=== PATIENT | male | born 1960 | race Caucasian/White ===

== ENCOUNTER 2021-04-13 20:21 | Inpatient (IN) ==
[2021-04-13] MEDS ORDERED: Droperidol 5 MG/2 ML 2 ML VIAL IM ONE (21:20)
[2021-04-13 22:49] LABS: ABS Lymphocytes 1.5 10^3/ul (1.0-4.8); ABS Monocytes 0.9 10^3/ul (0-0.8); Eosinophil % 0.6 %; Hematocrit 43 % (42-52); Hemoglobin 14.5 g/dL (14.0-18.0); Lymphocyte % 23.4 %; Mean Corpuscular HGB Conc 34 g/dL (31-36); Mean Corpuscular Hemoglobin 32 pg (27-31); Mean Corpuscular Volume 96 fL (80-94); Mean Platelet Volume 9.6 fL (7.4-10.4); Nucleated Red Blood Cells % 0.2; Platelet Count 173 10^3/uL (150-450); Red Blood Count 4.48 10^6 /uL (4.18-5.48); Red Cell Distribution Width 14 % (10-15); White Blood Count 6.5 10^3/uL (3.5-10.8)
[2021-04-13 22:59] LABS: ALT 43 U/L (7-52); AST 37 U/L (13-39); Albumin 4.1 g/dL (3.2-5.2); Albumin/Globulin Ratio 1.5 (1-3); Alkaline Phosphatase 41 U/L (35-149); Anion Gap 6 mmol/L (2-11); Blood Urea Nitrogen 15 mg/dL (6-24); CO2 Carbon Dioxide 27 mmol/L (22-32); Calcium 9.3 mg/dL (8.6-10.3); Chloride 104 mmol/L (101-111); Globulin 2.8 g/dL (2-4); Glucose 104 mg/dL (70-100); Potassium 4.1 mmol/L (3.5-5.0); Sodium 137 mmol/L (135-145); Total Protein 6.9 g/dL (6.4-8.9)
[2021-04-13 23:18] LABS: Alcohol, S < 13 mg/dL (<13); Salicylate < 2.50 mg/dL (<30)
[2021-04-13 23:32] LABS: Acetaminophen < 15 mcg/mL
[2021-04-13 23:40] LABS: TSH Ultra Thyroid Stim Horm 7.25 mcIU/mL (0.34-5.60)
[2021-04-13 23:58] LABS: Urine Appearance Clear; Urine Bilirubin Negative (Negative); Urine Blood Negative (Negative); Urine Color Yellow; Urine Glucose Negative (Negative); Urine Ketones Negative (Negative); Urine Nitrite Negative (Negative); Urine Protein Negative (Negative); Urine Specific Gravity 1.008 (1.002-1.030); Urine Urobilinogen Negative (Negative)
[2021-04-14 00:03] LABS: Rapid COVID-19 Molecular Undetected (Undetected)
[2021-04-14 00:13] LABS: Urine Benzodiazepine Screen None Detected (None Detect); Urine Cannabinoids Screen None Detected (None Detect); Urine Opiates Screen None Detected (None Detect)
[2021-04-14] MEDS ORDERED: Ziprasidone IM 20 mg VIAL 1 ml VIAL IM ONE (03:33)
[2021-04-14] MEDS ORDERED: Ziprasidone IM 20 mg VIAL 1 ml VIAL ONE (03:34)
[2021-04-14] MEDS ORDERED: Albuterol HFA INHALER 8 gm MDI INH ONE (09:08)
[2021-04-14 09:37] LABS: INR 1.6 (0.86-1.15)
[2021-04-14] MEDS ORDERED: Al Hydrox/Mg Hydrox/Simet LIQ 30 ML UDC PO PRN (12:01)
[2021-04-14] MEDS: Amoxicillin/Clavul 875/125 TAB (Augmentin 875 tab) PO SCH ×2 (13:02→21:46)
[2021-04-15] MEDS: Amoxicillin/Clavul 875/125 TAB (Augmentin 875 tab) PO SCH ×2 (07:39→21:19)
[2021-04-15] MEDS: Albuterol HFA INHALER 8 gm MDI INH PRN (08:28)
[2021-04-16] MEDS: Amoxicillin/Clavul 875/125 TAB (Augmentin 875 tab) PO SCH ×2 (08:10→21:23)
[2021-04-16] MEDS: Albuterol HFA INHALER 8 gm MDI INH PRN ×2 (08:32→18:56)
[2021-04-16] MEDS ORDERED: Warfarin per PHARMACY **NOTE FOLLOW UP SCH (12:00)
[2021-04-16 16:39] LABS: INR 1.26 (0.86-1.15)
[2021-04-16 17:23] LABS: Free T4 0.94 ng/dL (0.61-1.12)
[2021-04-16] MEDS ORDERED: CASIRIVIMAB/IMDEVIMAB SUBCUT 600-600MG/10 ML SUBCUT ONE (18:00)
[2021-04-16] MEDS ORDERED: Enoxaparin 100 MG/ML SYR SUBCUT SCH (18:30)
[2021-04-17] MEDS: Amoxicillin/Clavul 875/125 TAB (Augmentin 875 tab) PO SCH ×2 (08:05→19:52)
[2021-04-17 08:16] LABS: INR 1.33 (0.86-1.15)
[2021-04-18] MEDS: Amoxicillin/Clavul 875/125 TAB (Augmentin 875 tab) PO SCH (08:01)
[2021-04-18 11:57] LABS: INR 1.38 (0.86-1.15)
[2021-04-18] MEDS: Albuterol HFA INHALER 8 gm MDI INH PRN (12:26)
[2021-04-18] MEDS ORDERED: Nicotine GUM 2MG FRUIT FLAVOR PO PRN (12:32)
[2021-04-18] MEDS: Nicotine PATCH 14 MG/24 HR PATCH TRANSDERM SCH (14:49)
[2021-04-19 08:10] LABS: INR 1.57 (0.86-1.15)
[2021-04-19] MEDS: Nicotine PATCH 14 MG/24 HR PATCH TRANSDERM SCH (09:36)
[2021-04-19] MEDS ORDERED: Haloperidol 5 mg/ml SDV IV/IM 5 MG/ML AMP ONE ×2 (11:11→16:48)
[2021-04-19] MEDS ORDERED: LORazepam 2 mg VIAL 1 ml ONE ×2 (11:12→16:50)
[2021-04-19] MEDS ORDERED: diPHENhydraMINE IV 50 MG/ML 1 ml VIAL (BENADRYL) ONE (16:48)
[2021-04-19] MEDS ORDERED: Haloperidol 5 mg/ml SDV IV/IM 5 MG/ML AMP IM ONE (16:56)
[2021-04-19] MEDS ORDERED: LORazepam 2 mg VIAL 1 ml IM ONE (16:57)
[2021-04-19] MEDS ORDERED: diPHENhydraMINE IV 50 MG/ML 1 ml VIAL (BENADRYL) IM ONE (16:58)
[2021-04-19] MEDS ORDERED: Lorazepam PYXIS KEY PRN (17:06)
[2021-04-19] MEDS: Albuterol HFA INHALER 8 gm MDI INH PRN ×2 (17:56→23:20)
[2021-04-20] MEDS: Nicotine PATCH 14 MG/24 HR PATCH TRANSDERM SCH (08:20)
[2021-04-20 09:18] LABS: INR 1.97 (0.86-1.15)
[2021-04-20] MEDS ORDERED: diPHENhydraMINE IV 50 MG/ML 1 ml VIAL (BENADRYL) ONE (13:18)
[2021-04-21 08:03] LABS: INR 2.71 (0.86-1.15)
[2021-04-21] MEDS: Nicotine PATCH 14 MG/24 HR PATCH TRANSDERM SCH (09:47)
[2021-04-21] MEDS: Albuterol HFA INHALER 8 gm MDI INH PRN (09:48)
[2021-04-21] MEDS: Warfarin DAILY REMINDER **NOTE FOLLOW UP SCH (16:50)
[2021-04-22 08:05] LABS: Hematocrit 43 % (42-52); Hemoglobin 14.7 g/dL (14.0-18.0); Mean Platelet Volume 10.1 fL (7.4-10.4); Platelet Count 141 10^3/uL (150-450)
[2021-04-22 08:41] LABS: INR 2.16 (0.86-1.15)
[2021-04-22] MEDS: Nicotine PATCH 14 MG/24 HR PATCH TRANSDERM SCH (11:15)
[2021-04-22] MEDS: Albuterol HFA INHALER 8 gm MDI INH PRN ×2 (16:59→22:46)
[2021-04-22] MEDS: Warfarin DAILY REMINDER **NOTE FOLLOW UP SCH (17:00)
[2021-04-23 07:54] LABS: INR 2.27 (0.86-1.15)
[2021-04-23] MEDS: Nicotine PATCH 14 MG/24 HR PATCH TRANSDERM SCH (08:28)
[2021-04-23] MEDS: Albuterol HFA INHALER 8 gm MDI INH PRN (16:34)
[2021-04-23] MEDS: Warfarin DAILY REMINDER **NOTE FOLLOW UP SCH (17:04)
[2021-04-24] MEDS: Nicotine PATCH 14 MG/24 HR PATCH TRANSDERM SCH (08:40)
[2021-04-24 08:59] LABS: INR 3.01 (0.86-1.15)
[2021-04-24] MEDS: Warfarin DAILY REMINDER **NOTE FOLLOW UP SCH (17:19)
[2021-04-25] MEDS: Nicotine PATCH 14 MG/24 HR PATCH TRANSDERM SCH (08:42)
[2021-04-25 11:13] LABS: INR 3.28 (0.86-1.15)
[2021-04-25] MEDS: Warfarin DAILY REMINDER **NOTE FOLLOW UP SCH (17:34)
[2021-04-25] MEDS: Albuterol HFA INHALER 8 gm MDI INH PRN (22:10)
[2021-04-26 01:31] LABS: ABS Eosinophils 0.1 10^3/ul (0-0.6); ABS Lymphocytes 1.4 10^3/ul (1.0-4.8); ABS Monocytes 0.6 10^3/ul (0-0.8); ABS Neutrophils 2.7 10^3/ul (1.5-7.7); Eosinophil % 2.2 %; Hematocrit 42 % (42-52); Hemoglobin 14.2 g/dL (14.0-18.0); Lymphocyte % 29.1 %; Mean Corpuscular HGB Conc 34 g/dL (31-36); Mean Corpuscular Hemoglobin 32 pg (27-31); Mean Corpuscular Volume 95 fL (80-94); Mean Platelet Volume 9.8 fL (7.4-10.4); Nucleated Red Blood Cells % 0.1; Platelet Count 140 10^3/uL (150-450); Red Blood Count 4.41 10^6 /uL (4.18-5.48); Red Cell Distribution Width 14 % (10-15); White Blood Count 4.9 10^3/uL (3.5-10.8)
[2021-04-26 01:51] LABS: Calcium 9.5 mg/dL (8.6-10.3)
[2021-04-26 01:54] LABS: Troponin I 0.01 ng/mL (<0.03)
[2021-04-26] MEDS: Nicotine PATCH 14 MG/24 HR PATCH TRANSDERM SCH (08:33)
[2021-04-26 08:35] LABS: INR 4.01 (0.86-1.15)
[2021-04-26] MEDS ORDERED: Warfarin - No Order Today **NOTE FOLLOW UP ONE (17:00)
[2021-04-26 18:39] VITALS: BP 142/79
== END 2021-04-26 17:30 | disposition home or self-care (01) | DRG 885 ==
LOC: ED 20:21 → BSU 04-14 15:45
PROVIDERS: ADMIT Psychiatry & Neurology Psychiatry; ATTEND Psychiatry & Neurology Psychiatry

== ENCOUNTER 2021-05-17 14:34 | Inpatient (IN) ==
[2021-05-17 15:49] LABS: Urine Appearance Clear; Urine Bilirubin Negative (Negative); Urine Blood Negative (Negative); Urine Color Yellow; Urine Glucose Negative (Negative); Urine Ketones Negative (Negative); Urine Nitrite Negative (Negative); Urine Protein Negative (Negative); Urine Specific Gravity 1.024 (1.002-1.030); Urine Urobilinogen Negative (Negative)
[2021-05-17 16:15] LABS: Urine Benzodiazepine Screen None Detected (None Detect); Urine Cannabinoids Screen None Detected (None Detect); Urine Opiates Screen None Detected (None Detect)
[2021-05-17 16:19] LABS: ABS Basophils 0.1 10^3/ul (0-0.2); ABS Lymphocytes 0.8 10^3/ul (1.0-4.8); ABS Monocytes 0.6 10^3/ul (0-0.8); ABS Neutrophils 4.5 10^3/ul (1.5-7.7); Eosinophil % 0.3 %; Hematocrit 45 % (42-52); Hemoglobin 15.3 g/dL (14.0-18.0); Lymphocyte % 13.8 %; Mean Corpuscular HGB Conc 34 g/dL (31-36); Mean Corpuscular Hemoglobin 33 pg (27-31); Mean Corpuscular Volume 96 fL (80-94); Mean Platelet Volume 10.6 fL (7.4-10.4); Platelet Count 134 10^3/uL (150-450); Red Blood Count 4.65 10^6 /uL (4.18-5.48); Red Cell Distribution Width 13 % (10-15); White Blood Count 6.1 10^3/uL (3.5-10.8)
[2021-05-17 16:59] LABS: ALT 23 U/L (7-52); AST 26 U/L (13-39); Albumin 4.4 g/dL (3.2-5.2); Albumin/Globulin Ratio 1.6 (1-3); Alkaline Phosphatase 51 U/L (35-149); Anion Gap 8 mmol/L (2-11); Blood Urea Nitrogen 11 mg/dL (6-24); CO2 Carbon Dioxide 26 mmol/L (22-32); Calcium 9.6 mg/dL (8.6-10.3); Chloride 105 mmol/L (101-111); Globulin 2.8 g/dL (2-4); Glucose 87 mg/dL (70-100); Potassium 4.3 mmol/L (3.5-5.0); Sodium 139 mmol/L (135-145); Total Protein 7.2 g/dL (6.4-8.9); eGFR CKD-EPI 100.7 (>60)
[2021-05-17 17:07] LABS: TSH Ultra Thyroid Stim Horm 2.06 mcIU/mL (0.34-5.60)
[2021-05-17 17:15] LABS: Alcohol, S < 13 mg/dL (<13); Salicylate < 2.50 mg/dL (<30)
[2021-05-17 17:17] LABS: Acetaminophen < 15 mcg/mL
[2021-05-17] MEDS ORDERED: Nicotine GUM 2MG FRUIT FLAVOR PO PRN (23:00)
[2021-05-17] MEDS ORDERED: Al Hydrox/Mg Hydrox/Simet LIQ 30 ML UDC PO PRN (23:20)
[2021-05-17] MEDS ORDERED: Albuterol HFA INHALER 8 gm MDI INH PRN (23:30)
[2021-05-17 23:36] LABS: INR 2.42 (0.86-1.15)
[2021-05-18] MEDS: Vitamin THERAPEUTIC TAB PO SCH (08:44)
[2021-05-18] MEDS ORDERED: Nicotine PATCH 14 MG/24 HR PATCH TRANSDERM SCH (09:00)
[2021-05-18 09:13] LABS: Folate 15.42 ng/mL (5.90-24.80)
[2021-05-18 09:14] LABS: Vitamin B12 371 pg/mL (180-914)
[2021-05-18] MEDS: Warfarin DAILY REMINDER **NOTE FOLLOW UP SCH (19:49)
[2021-05-19 08:12] LABS: HDL Cholesterol 34.3 mg/dL
[2021-05-19] MEDS: Vitamin THERAPEUTIC TAB PO SCH (08:40)
[2021-05-19] MEDS: Warfarin DAILY REMINDER **NOTE FOLLOW UP SCH (17:21)
[2021-05-20] MEDS: Vitamin THERAPEUTIC TAB PO SCH (08:15)
[2021-05-20] MEDS: Warfarin DAILY REMINDER **NOTE FOLLOW UP SCH (18:22)
[2021-05-21] MEDS: Vitamin THERAPEUTIC TAB PO SCH (08:08)
[2021-05-21 08:58] LABS: INR 1.92 (0.86-1.15)
[2021-05-21 09:06] LABS: Albumin 4.4 g/dL (3.2-5.2); Albumin/Globulin Ratio 1.5 (1-3); Calcium 9.9 mg/dL (8.6-10.3); Globulin 2.9 g/dL (2-4); Potassium 4.5 mmol/L (3.5-5.0); Total Bilirubin 0.6 mg/dL (0.2-1.0); Total Protein 7.3 g/dL (6.4-8.9); eGFR CKD-EPI 94.6 (>60)
[2021-05-21] MEDS ORDERED: Warfarin per PHARMACY **NOTE FOLLOW UP SCH (11:00)
[2021-05-21] MEDS: Warfarin DAILY REMINDER **NOTE FOLLOW UP SCH (17:25)
[2021-05-22] MEDS: Vitamin THERAPEUTIC TAB PO SCH (08:15)
[2021-05-22 09:58] LABS: INR 1.81 (0.86-1.15)
[2021-05-22] MEDS: Warfarin DAILY REMINDER **NOTE FOLLOW UP SCH (17:09)
[2021-05-23 09:52] LABS: INR 2.29 (0.86-1.15)
[2021-05-23] MEDS: Vitamin THERAPEUTIC TAB PO SCH (11:01)
[2021-05-23] MEDS: Warfarin DAILY REMINDER **NOTE FOLLOW UP SCH (16:50)
[2021-05-24 08:53] LABS: INR 2.46 (0.86-1.15)
[2021-05-24] MEDS: Vitamin THERAPEUTIC TAB PO SCH (09:49)
[2021-05-24] MEDS: Warfarin DAILY REMINDER **NOTE FOLLOW UP SCH (17:23)
[2021-05-25 08:08] LABS: Lithium 0.49 mmol/L (0.6-1.2)
[2021-05-25] MEDS: Vitamin THERAPEUTIC TAB PO SCH (09:50)
[2021-05-25 09:55] LABS: Calcium 9.2 mg/dL (8.6-10.3); Potassium 4.1 mmol/L (3.5-5.0); eGFR CKD-EPI 103.1 (>60)
[2021-05-25 13:06] LABS: INR 2.87 (0.86-1.15)
[2021-05-25] MEDS: Warfarin DAILY REMINDER **NOTE FOLLOW UP SCH (17:12)
[2021-05-26 08:08] LABS: INR 2.94 (0.86-1.15)
[2021-05-26] MEDS: Vitamin THERAPEUTIC TAB PO SCH (08:35)
[2021-05-26] MEDS: Warfarin DAILY REMINDER **NOTE FOLLOW UP SCH (17:26)
[2021-05-27 07:57] VITALS: BP 150/80
[2021-05-27] MEDS: Vitamin THERAPEUTIC TAB PO SCH (08:44)
[2021-05-27 09:12] LABS: INR 2.83 (0.86-1.15)
== END 2021-05-27 13:15 | disposition home or self-care (01) | DRG 885 ==
LOC: ED 14:34 → BSU 23:06
PROVIDERS: ADMIT Psychiatry & Neurology Psychiatry; ATTEND Psychiatry & Neurology Psychiatry